=== PATIENT | male | born 1945 | race Caucasian/White ===

== ENCOUNTER 2017-02-11 08:37 | Emergency (ER) | payer MEDICARE ==
[~2017-02-11] VITALS: Ht 170.2 cm; Wt 75.0 kg
[2017-02-11 08:38] VITALS: BP 174/115; PULSE 106; RESP 14; TEMP 98.6; O2SAT 95
[2017-02-11] MEDS ORDERED: CARV25TA PO (08:48)
[2017-02-11] MEDS ORDERED: BENI40TA3 PO (08:48)
[2017-02-11 08:50] VITALS: BP 169/98; PULSE 105; RESP 18; O2SAT 97
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
[2017-02-11 10:30] VITALS: BP 156/108; PULSE 103; RESP 18; O2SAT 95
[2017-02-11] MEDS ORDERED: ULTR50TA5 PO (10:44)
[2017-02-11] MEDS ORDERED: MOBI15TA PO (10:44)
--- NOTE | 2017-02-11 23:07 | EKG ---
Date Performed: 02/11/2017 Time Performed: 08:57:12 PTAGE: 71 years EKG: Sinus rhythm WITH FIRST DEGREE AV BLOCK INCOMPLETE RIGHT BUNDLE BRANCH BLOCK ABNORMAL RHYTHM ECG NO PREVIOUS TRACING DOCTOR: Stef Cabezas Interpretating Date/Time 02/11/2017 23:05:34
== END 2017-02-11 11:08 | disposition home or self-care (01) ==
LOC: NEPC 08:37
DX: S09.90XA Unspecified injury of head, initial encounter (principal); S40.012A Contusion of left shoulder, initial encounter; S20.212A Contusion of left front wall of thorax, initial encounter; R42 Dizziness and giddiness; V29.9XXA Motorcycle rider (driver) (passenger) injured in unspecified traffic accident, initial encounter
CPT/HCPCS: 70450; 71101; 73030; 93005; 99285